=== PATIENT | male | born 1970 | race Caucasian/White ===

== ENCOUNTER 2017-01-21 17:42 | Emergency (ER) | payer OTHER ==
[2017-01-21 17:51] VITALS: RESP 18
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
[2017-01-21] MEDS: LET GEL TOPICAL 1 EA SYR TP ONE ×2 (18:24→18:55)
[2017-01-21] MEDS ORDERED: ONDANSETRON DISINTEGRATING 4 MG TAB ONE (18:57)
[2017-01-21 19:00] VITALS: BP 156/89; PULSE 62; TEMP 98.2; O2SAT 95
== END 2017-01-26 18:00 | disposition home or self-care (01) ==
LOC: CED 17:42
PROC: 0HQ1XZZ Repair Face Skin, External Approach (ICD-10-PCS; principal; 2017-01-21)
DX: S01.81XA Laceration without foreign body of other part of head, initial encounter (principal); S80.211A Abrasion, right knee, initial encounter; S80.212A Abrasion, left knee, initial encounter; S50.311A Abrasion of right elbow, initial encounter; V18.2XXA Unspecified pedal cyclist injured in noncollision transport accident in nontraffic accident, initial encounter